=== PATIENT | female | born 1980 | race Caucasian/White ===

== ENCOUNTER 2017-05-09 17:08 | Emergency (ER) | payer BC | END 2017-05-09 18:04 | disposition left against medical advice (07) | LOC: UCCORT 17:08 | DX: R10.84 Generalized abdominal pain (principal); R07.81 Pleurodynia; Z53.21 Procedure and treatment not carried out due to patient leaving prior to being seen by health care provider ==

== ENCOUNTER 2017-07-02 09:57 | Emergency (ER) | payer BC ==
--- NOTE | 2017-07-02 10:24 | UC ---
Abdominal Pain Female HPI - HPI Summary HPI Summary: 36 yo female with the acute onset of LLQ abd pain this AM pain is severe no back pain nausea no vomiting hx bariatric surgery hx endometriosis - History of Current Complaint Chief Complaint: UCAbdominalPain Stated Complaint: ABD PAIN Time Seen by Provider: 07/02/17 10:18 Hx Obtained From: Patient Hx Last Menstrual Period: 06/07/15 Onset/Duration: Sudden Onset, Lasting Hours Severity Initially: Moderate Severity Currently: Severe Pain Intensity: 8 Pain Scale Used: 0-10 Numeric Location: Discrete At: LLQ Character: Colicy, Cramping, Sharp Aggravating Factor(s): Nothing Alleviating Factor(s): Nothing Associated Signs and Symptoms: Positive: Diaphoresis, Nausea Allergies/Adverse Reactions: Allergies Allergy/AdvReac Type Severity Reaction Status Date / Time NO MRI BREAST Allergy Severe NEURO Uncoded 07/02/17 10:08 STIMULATION BLEACH Allergy Intermediate Hives Uncoded 07/02/17 10:08 Home Medications: Home Medications Tyrosine 75 gm PO 07/02/17 [History] PMH/Surg Hx/FS Hx/Imm Hx Previously Healthy: Yes Neurological History: Other Other Neurological History: endometriosis - Surgical History Surgical History: Yes Surgery Procedure, Year, and Place: LASIK EYE SURGERY 2005; LABIA SURGERY 2005, [id number] 06/06/[facility], ovarian cyst removed - Family History Known Family History: Positive: Hypertension - Social History Alcohol Use: None Substance Use Type: None Smoking Status (MU): Former Smoker - Immunization History Most Recent Influenza Vaccination: none Review of Systems Constitutional: Negative Skin: Negative Eyes: Negative ENT: Negative Respiratory: Negative Cardiovascular: Negative Gastrointestinal: Abdominal Pain, Nausea Genitourinary: Negative Motor: Negative Neurovascular: Negative Musculoskeletal: Negative Neurological: Negative Psychological: Negative Is Patient Immunocompromised?: No All Other Systems Reviewed And Are Negative: Yes Physical Exam Triage Information Reviewed: Yes Appearance: Well-Nourished, Pain Distress Vital Signs: Initial Vital Signs Temp 97.8 F 07/02/17 10:02 Pulse 78 07/02/17 10:02 Resp 22 07/02/17 10:02 BP 133/78 07/02/17 10:02 Pulse Ox 100 07/02/17 10:02 Vital Signs Reviewed: Yes Eyes: Positive: Conjunctiva Clear ENT: Positive: Hearing grossly normal. Negative: Nasal congestion, Nasal drainage, Trismus, Muffled voice, Hoarse voice Neck: Positive: Supple Respiratory: Positive: Lungs clear, Normal breath sounds, No respiratory distress, No accessory muscle use Cardiovascular: Positive: RRR, No Murmur Abdomen Description: Positive: Soft, Other: - tender LLQ. Negative: Nontender, CVA Tenderness (R), CVA Tenderness (L) Bowel Sounds: Positive: Present Musculoskeletal: Positive: ROM Intact, No Edema Neurological: Positive: Alert Psychological Exam: Normal Skin Exam: Normal Diagnostics - Laboratory Diagnostic Studies Completed/Ordered: uDip (+) leuk, uHCG (-) Re-Evaluation - Re-Evaluation First Eval Re-Evaluation Time: 10:55 Change: Worse - pain worse Abd Pain Female Course/Dx - Course Course Of Treatment: discussed with Jeimy Stockton NP. to [facility] via EMS - Differential Dx/Diagnosis Provider Diagnoses: left LQ abd/pelvic pain of uncertain cause Discharge - Sign-Out/Discharge Documenting (check all that apply): Discharge - Discharge Plan Condition: Stable Disposition: [facility] Referrals: Galilea Menezes MD [Primary Care Provider] - - Billing Disposition and Condition Condition: STABLE Disposition: [facility]
[2017-07-02] MEDS ORDERED: Ketorolac INJ* 30 MG/ML 1 ML VIAL IM ONE (10:34)
[2017-07-02] MEDS ORDERED: Ketorolac INJ* 30 MG/ML 1 ML VIAL ONE (10:35)
--- OUTSIDE RECORDS SUMMARY | 2017-07-02 10:43 | XMS REPORT ---
:1980 External Reference #:[id number] Author Organization [facility] Address [address] [address] Phone [phone] Care Team Providers Name Role Phone Galilea Menezes MD Primary Care Physician Unavailable Payers Type Date Identification Numbers Payment Provider Subscriber Commercial Policy Number: [id number] [facility] Commercial Alexis Baumann PayID: [id number] [facility] [address] [place] [address] Workers Compensation Onset: 2000 Policy Number: Special Funds Kaya Baumann [id number] Group Number: [id number] [facility] PayID: [id number] [place] [address] Problems Date Description Provider Status Onset: 07/02/2009 Family history of malignant neoplasm of Galilea Menezes MD Active breast Onset: 07/02/2009 Hypothyroidism Galilea Menezes MD Active Onset: 06/26/2009 Genital herpes simplex Galilea Menezes MD Active Onset: 05/21/2015 Impaired glucose tolerance test Galilea Menezes MD Active Onset: 05/21/2015 Pure hyperglyceridemia Galilea Menezes MD Active Onset: 05/21/2015 Vitamin D deficiency Galilea Menezes MD Active Onset: 05/24/2017 Iron deficiency anemia Glailea Menezes MD Active Onset: 05/24/2017 Cobalamin deficiency Galilea Menezes MD Active Onset: 07/10/2016 History of gastrointestinal tract bypass Galilea Menezes MD Active Onset: 05/08/2016 Anxiety state Galilea Menezes MD Active Family History Date Family Member(s) Problem(s) Comments Father Diabetes, Adult Mother Diabetes, Adult Paternal Grandfather due to () Alcoholism Paternal Grandmother due to Stroke () Maternal Grandfather due to Cancer, () Brain Maternal Grandmother due to Cancer, () - OF Breast BONE METS Onset: (age 45 Maternal Aunts Cancer, Breast Years) Social History Type Date Description Comments Marital Status Lives With Spouse Smoke-Free Home is smoke-free Pets 1 cat 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 ETOH Use Rarely consumes alcohol Smoking Patient has never smoked General Hx Text Allergies, Adverse Reactions, Alerts Date Description Reaction Status Severity Comments 05/10/2014 NKDA active Medications Medication Date Status Form Strength Qnty SIG Indications Ordering Provider Alprazolam 05/24 Active Tablets 0.25mg 14tab 1 po daily F41.1 s as needed MD Galilea panic attack Tirosint 05/24 Active Capsules 75mcg 30cap 1 po daily E03.9 s MD Galilea Lysine 01/15 Active Tablets 500mg 2 by mouth every day MD Galilea otc Probiotic 01/15 Active Tablets [address] every day MD Galilea otc Biotin 07/10 Active Capsules 5000mcg 30cap 1 by mouth s every day MD Galilea Buspirone HCL 05/08 Active Tablets 5mg 60tab 1 -3 qd prn s Anxiety MD Galilea Calcium 01/07 Active Tablets 315-250mg 4 Tabs qd [place], Citrate + D3 /2015 -Unit DO Nhan Maximum Vitamin E 01/07 Active Capsules 1000Unit 1 by mouth every day DO Nhan Alive Once 01/07 Active Tablets 2 Tabs qd [place], Daily Women DO Nhan Ultra Potency Chaste Tree 01/07 Active 1 qd Bay DO Nhan Vitamin B12 12/14 Active Tablets 1000mcg OTC 1 by mouth every day MD Galilea Vitamin D3 11/12 Active Tablets , MD Galilea Butternut-3 Fish 11/12 Active Capsules 1000mg [address] Galilea MD Concentrate Magnesium Active Capsules 400mg 1 by mouth / every day Tramadol HCL Active Tablets 50mg one by Sos [place] /0000 mouth four Orthopedic times a day Specialists as needed pain Tumeric Active 400mg 1 tab by Unknown / mouth three times a day Ferretts Active Tablets 325(106Fe take one Unknown /0000 ) mg tablet (iron pill) daily with orange juice before supper meal Tirosint 05/08 Hx Capsules 88mcg 84cap 1 by mouth E03.9 Clif s daily MD Galilea - 05/24 Tirosint 01/20 Hx Capsules 75mcg 90cap 1 by mouth E03.9 Clif s daily - MD Galilea - check tsh in 05/08 6 Skin/ Nails/ 01/07 Hx 2 qd Phu, Hair DO Nhan - 07/10 [facility] Bernabe Wort 01/07 Hx Capsules 450mg Propriatary Phu Blend OTC DO Nhan - 05/08 Famotidine 09/15 Hx Tablets 20mg 60tab 1 by mouthPO Clif s qd MD Galilea - 01/07 Flintstones 09/15 Hx Chewtabs 2 by mouth Pelon Menezes daily with a MD Galilea Complete - meal 01/07 Buspirone HCL 05/21 Hx Tablets 5mg 90tab 1 by mouth F41.9 Clif s three times MD Galilea - a day as 01/07 anxiety Metformin HCL 12/14 Hx Tablets 500mg 60tab 1 by mouth Clif s twice a day MD Galilea - 05/21 [place] Thyroid 11/12 Hx Tablets 30mg 105ta take 3 2 E03.9 Clif bs tablets by MD Galilea - mouth daily 01/20 [place] Thyroid 05/10 Hx Tablets 120mg 90tab 1 by mouth 244.9 Clif s daily MD Galilea - 11/12 [place] Thyroid 04/24 Hx Tablets 30mg 105ta Take 3 1/2 244.9 Clif bs Tablets By MD Galilea - Mouth Once 05/10 Daily. Promethazine 11/21 Hx Tablets 12.5mg 30tab 1 by mouth KIERSTEN Menezes s three times MD Galilea - a day as 05/10 nausea Zovirax 10/06 Hx Cream 5% 5gm apply bid prn for cold MD Galilea - sores 09/15 Magnesium 00 Hx Capsules 300mg 1 by mouth Unknown /0000 every day - 09/15 Immunizations CPT Code Status Date Vaccine Lot # [id number] Given 12/01/2013 Immunization Td 7 Yrs Or Older [id number] Refused 06/14/2017 Afluria Or Fluvirin Flu Vac Intramuscular Vital Signs Date Vital Result Comment 06/14/2017 Weight 182.00 lb Heart Rate 76 /min BP Systolic 102 mmHg BP Diastolic 70 mmHg Respiratory Rate 18 /min Height 69.25 inches 5'9.25"05/24/17 BMI (Body Mass Index) 26.7 kg/m2 05/24/2017 Weight 184.00 lb Heart Rate 64 /min BP Systolic 110 mmHg BP Diastolic 70 mmHg Respiratory Rate 18 /min Height 69.25 inches 5'9.25"05/24/17 BMI (Body Mass Index) 27.0 kg/m2 01/15/2017 Weight 177.00 lb Heart Rate 76 /min BP Systolic 110 mmHg BP Diastolic 70 mmHg Respiratory Rate 18 /min Height 69.25 inches 5'9.25"01/15/17 BMI (Body Mass Index) 25.9 kg/m2 07/10/2016 Weight 181.00 lb Heart Rate 72 /min BP Systolic 110 mmHg BP Diastolic 70 mmHg Respiratory Rate 18 /min Height 69.25 inches 5'9.25" BMI (Body Mass Index) 26.5 kg/m2 05/08/2016 Weight 185.00 lb Heart Rate 84 /min BP Systolic 102 mmHg BP Diastolic 62 mmHg Respiratory Rate 18 /min Height 69.25 inches 5'9.25" BMI (Body Mass Index) 27.1 kg/m2 03/11/2016 Body Temperature 97.6 F Weight 191.00 lb Heart Rate 76 /min BP Systolic 126 mmHg BP Diastolic 84 mmHg Respiratory Rate 14 /min Height 69.25 inches 5'9.25" BMI (Body Mass Index) 28.0 kg/m2 01/08/2016 Weight 189.00 lb Heart Rate 80 /min BP Systolic 120 mmHg BP Diastolic 60 mmHg Respiratory Rate 18 /min Height 69.25 inches 5'9.25" O2 % BldC Oximetry 97 % BMI (Body Mass Index) 27.7 kg/m2 09/16/2015 Weight 204.00 lb Heart Rate 80 /min BP Systolic 110 mmHg BP Diastolic 70 mmHg Respiratory Rate 18 /min Height 69.25 inches 5'9.25" BMI (Body Mass Index) 29.9 kg/m2 05/31/2015 Weight 251.00 lb Heart Rate 66 /min BP Systolic 134 mmHg BP Diastolic 90 mmHg Respiratory Rate 18 /min Height 69.25 inches 5'9.25" BMI (Body Mass Index) 36.8 kg/m2 05/21/2015 Weight 248.00 lb Heart Rate 92 /min BP Systolic 154 mmHg BP Diastolic 84 mmHg BP Systolic Recheck 130 mmHg BP Diastolic Recheck 82 mmHg Respiratory Rate 18 /min Height 69 inches 5'9" BMI (Body Mass Index) 36.6 kg/m2 03/21/2015 Weight 246.00 lb Heart Rate 76 /min BP Systolic 112 mmHg BP Diastolic 70 mmHg Respiratory Rate 18 /min Height 69 inches 5'9" BMI (Body Mass Index) 36.3 kg/m2 02/19/2015 Weight 245.00 lb Heart Rate 76 /min BP Systolic 132 mmHg BP Diastolic 90 mmHg Respiratory Rate 20 /min Height 69 inches 5'9" BMI (Body Mass Index) 36.2 kg/m2 01/15/2015 Weight 251.00 lb Heart Rate 76 /min BP Systolic 122 mmHg BP Diastolic 72 mmHg Respiratory Rate 18 /min Height 69 inches 5'9" BMI (Body Mass Index) 37.1 kg/m2 12/14/2014 Weight 250.00 lb Heart Rate 76 /min BP Systolic 110 mmHg BP Diastolic 70 mmHg Respiratory Rate 18 /min Height 69 inches 5'9" BMI (Body Mass Index) 36.9 kg/m2 11/12/2014 Weight 257.00 lb Heart Rate 84 /min BP Systolic 112 mmHg BP Diastolic 90 mmHg Respiratory Rate 18 /min Height 69 inches 5'9" BMI (Body Mass Index) 37.9 kg/m2 09/27/2014 Weight 259.00 lb Heart Rate 78 /min BP Systolic 122 mmHg BP Diastolic 80 mmHg Respiratory Rate 18 /min Height 69 inches 5'9" BMI (Body Mass Index) 38.2 kg/m2 09/11/2014 Weight 235.00 lb Heart Rate 68 /min BP Systolic 126 mmHg BP Diastolic 78 mmHg Respiratory Rate 18 /min Height 69 inches 5'9" BMI (Body Mass Index) 34.7 kg/m2 05/10/2014 Weight 250.00 lb Heart Rate 68 /min BP Systolic 112 mmHg BP Diastolic 88 mmHg Respiratory Rate 18 /min Height 69.25 inches 5'9.25" BMI (Body Mass Index) 36.6 kg/m2 03/20/2014 Height 69.25 inches 5'9.25" 11/21/2013 Weight 230.00 lb Heart Rate 80 /min BP Systolic 124 mmHg BP Diastolic 90 mmHg Respiratory Rate 18 /min Height 69.25 inches 5'9.25" 09/21/2013 Weight 246.00 lb Heart Rate 80 /min BP Systolic 132 mmHg BP Diastolic 90 mmHg Respiratory Rate 18 /min Height 69.25 inches 5'9.25" 09/06/2013 Weight 244.00 lb Heart Rate 72 /min BP Systolic 122 mmHg BP Diastolic 88 mmHg Respiratory Rate 18 /min Height 69.25 inches 5'9.25" 08/22/2013 Weight 234.00 lb Heart Rate 80 /min BP Systolic 130 mmHg BP Diastolic 90 mmHg Respiratory Rate 18 /min Height 69.25 inches 5'9.25" 06/28/2013 Weight 239.00 lb Heart Rate 88 /min BP Systolic 124 mmHg BP Diastolic 80 mmHg Respiratory Rate 18 /min Height 69.25 inches 5'9.25" 04/10/2013 Weight 238.00 lb Heart Rate 60 /min BP Systolic 130 mmHg BP Diastolic 90 mmHg Respiratory Rate 18 /min Height 69.25 inches 5'9.25" (Done On 08/30/12) 03/07/2013 Weight 231.00 lb Heart Rate 88 /min BP Systolic 140 mmHg BP Diastolic 90 mmHg Respiratory Rate 18 /min Height 69.25 inches 5'9.25" 10/05/2012 Weight 221.00 lb Heart Rate 74 /min BP Systolic 138 mmHg BP Diastolic 84 mmHg Respiratory Rate 18 /min 08/30/2012 Weight 220.00 lb Heart Rate 64 /min BP Systolic 124 mmHg BP Diastolic 84 mmHg Respiratory Rate 16 /min Height 69.25 inches 5'9.25" 02/02/2012 Weight 207.00 lb Heart Rate 72 /min BP Systolic 100 mmHg BP Diastolic 74 mmHg Respiratory Rate 18 /min Height 69.25 inches 5'9.25"08/28/2011 Body Temperature 98.1 F Weight 207.44 lb Heart Rate 82 /min BP Systolic 120 mmHg BP Diastolic 78 mmHg Respiratory Rate 17 /min Height 69.25 inches 5'9.25"/-201107/27/2011 Weight 202.00 lb Heart Rate 102 /min BP Systolic 112 mmHg BP Diastolic 74 mmHg Respiratory Rate 18 /min Height 69.25 inches 5'9.25" 07/24/2010 Weight 181.00 lb Heart Rate 70 /min BP Systolic 118 mmHg BP Diastolic 70 mmHg Respiratory Rate 16 /min Height 70 inches 5'10" 04/17/2010 Weight 204.00 lb Heart Rate 80 /min BP Systolic 124 mmHg BP Diastolic 80 mmHg Respiratory Rate 18 /min Height 69 inches 5'9" 01/14/2010 Weight 214.00 lb Heart Rate 80 /min BP Systolic 124 mmHg BP Diastolic 82 mmHg Respiratory Rate 18 /min 12/10/2009 Weight 212.00 lb Heart Rate 100 /min BP Systolic 122 mmHg BP Diastolic 807 mmHg Respiratory Rate 18 /min 11/21/2009 Weight 207.00 lb Heart Rate 88 /min BP Systolic 130 mmHg BP Diastolic 80 mmHg Respiratory Rate 18 /min 11/19/2009 Body Temperature 98.8 F Weight 207.00 lb Heart Rate 84 /min BP Systolic 120 mmHg BP Diastolic 80 mmHg Respiratory Rate 18 /min 10/03/2009 Weight 214.00 lb Heart Rate 102 /min BP Systolic 120 mmHg BP Diastolic 80 mmHg Respiratory Rate 18 /min 07/02/2009 Weight 206.00 lb Heart Rate 88 /min BP Systolic 112 mmHg BP Diastolic 80 mmHg Respiratory Rate 18 /min 06/26/2009 Weight 207.00 lb Heart Rate 60 /min BP Systolic 120 mmHg BP Diastolic 80 mmHg Respiratory Rate 16 /min Height 69.5 inches 5'9.50" Results Test Date Test Result H/L Range Note Laboratory test finding 01/13/2017 TSH 4.60 uIU/mL 0.35-4.94 1 Laboratory test finding 11/11/2016 Ferritin 9 ng/mL 8-252 2, 3 Magnesium 2.1 mg/dL 1.8-2.4 2, 4 Iron-Tibc-%Sat 11/11/2016 Serum Iron 53 g/dL 50-170 2 Total Iron Binding Capacity 403 g/dL 250-450 2 Transferrin %Saturation 13 % 12-57 2 Comprehensive Metabolic (CMP) 07/02/2016 Glucose 92 mg/dL 74-106 5 BUN 6 mg/dL Low 7-18 5 Creatinine 0.6 mg/dL 0.6-1.3 5 Glom Filtration Rate, Estimate >60 mL/min >60 5 If >60 mL/min >60 5, 6 BUN/Creat 10.0 ratio 5 Sodium 141 mmol/L 136-145 5 Potassium 4.0 mmol/L 3.5-5.1 5 Chloride 108 mmol/L High 98-107 5 Carbon Dioxide 23 mmol/L 21-32 5 Anion Gap 10 mEq/L 8-16 5 Calcium 8.6 mg/dL 8.5-10.1 5 Total Protein 7.6 g/dL 6.4-8.2 5 Albumin 3.9 g/dL 3.4-5.0 5 Globulin 3.7 g/dL 1.9-4.3 5 Alb/Glob 1.1 ratio 5 Bilirubin,Total 0.6 mg/dL 0.2-1.0 5 Sgot/Ast 19 U/L 15-37 5 SGPT/Alt 28 U/L 12-78 5 Alkaline Phosphatase 67 U/L 45-117 5 Laboratory test finding 07/02/2016 Thyroid Stim Hormone 3.69 uIU/mL 0.30- 4.20 5 Glycohemoglobin A1c 07/02/2016 Glycohemoglobin (A1c) 5.4 % 4.2-6.3 5, 7 eAG 108 mg/dL 5 Laboratory test finding 07/02/2016 Vitamin D,25-Hydroxy 41.4 ng/mL 30.0- 100.0 5, 8 Lipid 07/02/2016 Cholesterol 150 mg/dL <200 5, 9 Triglycerides 103 mg/dL <150 5, 10 HDL Cholesterol 63 mg/dL >40 5, 11 LDL-Cholesterol 66 mg/dL < 100 5, 12 Laboratory test 05/05/2016 Thyroid Stim 8.44 uIU/mL High 0.30-4.20 13 finding Hormone Laboratory test 03/18/2016 Urine HCG NEGATIVE Negative 14, 15 finding (Qualitative) Stool Panel 03/12/2016 Enteric Pathogens SEE NOTE 16, 17 By PCR Giard/Cryptosp Exam SEE NOTE 16, 18 Lactoferrin,Fecal POSITIVE (Neg) 16, 19 Crypto/Giard Antigen 03/12/2016 Crypto/Giard Antigen SEE NOTE 16, 20 C Diff Toxin B/PCR-RL 03/12/2016 Specimen Description STOOL 16 C Diff Toxin B NEGATIVE (Neg) 16 027 Nap1 B1 NEGATIVE (Neg) 16 Comment NOTE: IF REFLEX <SEE NOTE> 16, 21 Laboratory test finding 03/11/2016 Thyroid Stim Hormone 7.01 uIU/mL High 0.30-4.20 22 Hepatic (Liver) Panel 03/11/2016 Sgot/Ast 29 U/L 15-37 22 SGPT/Alt 39 U/L 12-78 22 Total Protein 7.7 g/dL 6.4-8.2 22 Albumin 3.9 g/dL 3.4-5.0 22 Globulin 3.8 g/dL 1.9-4.3 22 Alb/Glob 1.0 ratio 22 Bilirubin,Total 0.5 mg/dL 0.2-1.0 22 Bilirubin,Direct < 0.1 mg/dL 0.0-0.2 22 Bilirubin,Indirect 0.4 mg/dL 0.0-0.9 22 Alkaline Phosphatase 70 U/L 45-117 22 CBC With Auto Diff 12/20/2015 White Blood Count 5.3 K/uL 3.1-10.7 23 Red Blood Count 4.88 M/uL 3.90-5.40 23 Hemoglobin 14.1 gm/dL 11.6-15.8 23 Hematocrit 41.4 % 36.0-46.1 23 Mean Cell Volume 84.8 fl 80.9-99.0 23 Mean Corpuscular HGB 28.9 pg 25.9-32.7 23 Mean Corpuscular HGB Conc 34.1 g/dL 30.8-34.3 23 Platelet Count 354 K/uL 155-360 23 Red Cell Distri Width SD 41.7 fl 3-47 23 Red Cell Distri Width %CV 13.7 % 11.7-14.4 23 Mean Platelet Volume 10.1 fL 8.9-12.4 23 Neut% 33.5 % Low 40.4-72.8 23 Lymph % 54.9 % High 17.0-46.1 23 [place] % 9.7 % 4.3-13.2 23 Eo% 1.3 % 0.0-6.6 23 Bas% 0.6 % 0.0-1.1 23 Neut# 1.76 K/uL Low 1.8-7.0 23 Lymph # 2.88 K/uL 1.8-7.0 23 [place] # 0.51 K/uL 0.3-0.9 23 Eos # 0.07 K/uL 0.0-0.5 23 Baso # 0.03 K/uL 0.0-0.1 23 @[facility] Pat Id: [id number] 23 @[facility] Req #: [id number] 23 TSH 12/20/2015 Thyroid Stim Hormone 1.06 uIU/mL 0.30-4.20 @[facility] Pat Id: [id number] @[facility] Req #: [id number] Is Patient Fasting? Fasting Serum Iron 12/20/2015 Serum Iron 80 g/dL 50-170 @[facility] Pat Id: [id number] @[facility] Req #: [id number] Is Patient Fasting? Fasting Inhibin A, Ultrasensitive 12/20/2015 Inhibin A, Ultrasensitive 46.9 pg/mL . 23, 24 @[facility] Pat Id: [id number] 23 @[facility] Req #: [id number] 23 HCG,Beta 12/20/2015 HCG,Beta <1 mIU/mL . 23, 25 Subunit,QN,(Serial) Subunit,QN,(Serial) @[facility] Pat Id: [id number] 23 @[facility] Req #: [id number] 23 Cancer Antigen (CA) 125 12/20/2015 Cancer Antigen (CA) 125 35.3 U/mL 0.0- 38.1 23, 26 @[facility] Pat Id: [id number] 23 @[facility] Req #: [id number] 23 Vitamin B12 12/20/2015 Vitamin B12 780 pg/mL 193-986 @[facility] Pat Id: [id number] @[facility] Req #: [id number] Is Patient Fasting? Fasting Ferritin 12/20/2015 Ferritin 14 ng/mL 8-252 @[facility] Pat Id: [id number] @[facility] Req #: [id number] Is Patient Fasting? Fasting Comprehensive Metabolic Panel 12/20/2015 Glucose 93 mg/dL 74-106 BUN 5 mg/dL Low 7-18 Creatinine 0.6 mg/dL 0.6-1.3 Glom Filtration Rate, Estimate >60 mL/min >60 If >60 mL/min >60 27 BUN/Creat 8.3 ratio Sodium 142 mmol/L 136-145 Potassium 3.7 mmol/L 3.5-5.1 Chloride 109 mmol/L High 98-107 Carbon Dioxide 25 mmol/L 21-32 Anion Gap 8 mEq/L 8-16 Calcium 8.7 mg/dL 8.5-10.1 Total Protein 6.7 g/dL 6.4-8.2 Albumin 3.3 g/dL Low 3.4-5.0 Globulin 3.4 g/dL 1.9-4.3 Alb/Glob 1.0 ratio Bilirubin,Total 0.4 mg/dL 0.2-1.0 Sgot/Ast 27 U/L 15-37 SGPT/Alt 40 U/L 12-78 Alkaline Phosphatase 65 U/L 45-117 @[facility] Pat Id: [id number] @[facility] Req #: [id number] Is Patient Fasting? Fasting Phosphorous 12/20/2015 Phosphorous 3.2 mg/dL 2.5-4.0 @[facility] Pat Id: [id number] @[facility] Req #: [id number] Is Patient Fasting? Fasting Magnesium 12/20/2015 Magnesium 1.8 mg/dL 1.8-2.4 @[facility] Pat Id: [id number] @[facility] Req #: [id number] Is Patient Fasting? Fasting Afp Tumor Marker,Serum 12/20/2015 Afp Tumor Marker,Serum 5.4 ng/mL 0.0- 8.3 23, 28 @[facility] Pat Id: [id number] 23 @[facility] Req #: [id number] 23 Folate,RBC 12/20/2015 Folate,Hemolysate 483.7 ng/mL Not Estab. 23 Hematocrit 41.2 % 34.0-46.6 23 Folate,RBC 1174 ng/mL >498 23 @[facility] Pat Id: [id number] 23 @[facility] Req #: [id number] 23 Glycohemoglobin A1c 12/20/2015 Glycohemoglobin (A1c) 5.3 % 4.2-6.3 23, 29 eAG 105 mg/dL 23 @[facility] Pat Id: [id number] 23 @[facility] Req #: [id number] 23 LDH 12/20/2015 LDH 125 U/L 84-246 @[facility] Pat Id: [id number] @[facility] Req #: [id number] Is Patient Fasting? Fasting Laboratory test finding 03/12/2015 QuantiFERON Criteria See Note Negative 30 QuantiFERON TB Ag Value 0.03 IU/mL . QuantiFERON Nil Value 0.04 IU/mL . QuantiFERON Mitogen Value 9.48 IU/mL . QFT TB Ag minus Nil Value < 0.01 IU/mL . QuantiFERON TB Gold Interpret See Note 31 Glycohemoglobin A1c 03/12/2015 Glycohemoglobin (A1c) 5.4 % 4.2-6.3 32 eAG 108 mg/dL Laboratory test finding 02/08/2015 Thyroid Stim Hormone 0.83 uIU/mL 0.36- 3.74 Iron-Tibc-%Sat 02/08/2015 Serum Iron 86 g/dL 50-170 Total Iron Binding Capacity 355 g/dL 250-450 Transferrin %Saturation 24 % 12-57 Laboratory test finding 02/08/2015 Vitamin B12 879 pg/mL 193-986 33 Comprehensive Metabolic Panel 02/08/2015 Glucose 97 mg/dL 74-106 BUN 12 mg/dL 7-18 Creatinine 0.7 mg/dL 0.6-1.3 Glom Filtration Rate, Estimate >60 mL/min >60 If >60 mL/min >60 34 BUN/Creat 17.1 ratio Sodium 139 mmol/L 136-145 Potassium 4.2 mmol/L 3.5-5.1 Chloride 111 mmol/L High 98-107 Carbon Dioxide 21 mmol/L 21-32 Anion Gap 7 mEq/L Low 8-16 Calcium 8.6 mg/dL 8.5-10.1 Total Protein 7.3 g/dL 6.4-8.2 Albumin 3.8 g/dL 3.4-5.0 Globulin 3.5 g/dL 1.9-4.3 Alb/Glob 1.1 ratio Bilirubin,Total 0.4 mg/dL 0.2-1.0 Sgot/Ast 40 U/L High 15-37 SGPT/Alt 61 U/L 12-78 Alkaline Phosphatase 76 U/L 45-117 Laboratory test finding 02/08/2015 Magnesium 2.0 mg/dL 1.8-2.4 Insulin 15.9 uIU/mL 2.6-24.9 35 Testosterone,Serum 20 ng/dL 8-48 Vitamin D,25-Hydroxy 38.1 ng/mL 30.0-100.0 36 CBC W/Automated Diff 02/08/2015 White Blood Count 4.4 K/uL 3.1-10.7 Red Blood Count 5.11 M/uL 3.90-5.40 Hemoglobin 14.7 gm/dL 11.6-15.8 Hematocrit 41.8 % 36.0-46.1 Mean Cell Volume 81.8 fl 80.9-99.0 Mean Corpuscular HGB 28.8 pg 25.9-32.7 Mean Corpuscular HGB Conc 35.2 g/dL High 30.8-34.3 Platelet Count 391 K/uL High 155-360 Red Cell Distri Width SD 41.3 fl 3-47 Red Cell Distri Width %CV 14.3 % 11.7-14.4 Mean Platelet Volume 10.3 fL 8.9-12.4 Neut% 38.9 % Low 40.4-72.8 Lymph % 49.4 % High 17.0-46.1 [place] % 9.8 % 4.3-13.2 Eo% 1.4 % 0.0-6.6 Bas% 0.5 % 0.0-1.1 Neut# 1.70 K/uL 1.0-7.0 Lymph # 2.16 K/uL 1.8-7.0 [place] # 0.43 K/uL 0.3-0.9 Eos # 0.06 K/uL 0.0-0.5 Baso # 0.02 K/uL 0.0-0.1 Liver Function Tests 10/15/2014 Total Protein 7.2 g/dL 6.4-8.2 Albumin 3.8 g/dL 3.4-5.0 Globulin 3.4 g/dL 1.9-4.3 Alb/Glob 1.1 ratio Bilirubin,Total 0.3 mg/dL 0.2-1.0 Bilirubin,Direct < 0.1 mg/dL 0.0-0.2 Bilirubin,Indirect 0.2 mg/dL 0.0-0.9 Sgot/Ast 26 U/L 15-37 SGPT/Alt 51 U/L 12-78 Alkaline Phosphatase 91 U/L 45-117 Basic Metabolic Panel 10/15/2014 Glucose 108 mg/dL High 74-106 BUN 10 mg/dL 7-18 Creatinine 0.7 mg/dL 0.6-1.3 Glom Filtration Rate, Estimate >60 mL/min >60 If >60 mL/min >60 37 BUN/Creat 14.2 ratio Sodium 138 mmol/L 136-145 Potassium 3.8 mmol/L 3.5-5.1 Chloride 108 mmol/L High 98-107 Carbon Dioxide 23 mmol/L 21-32 Anion Gap 7 mEq/L Low 8-16 Calcium 9.1 mg/dL 8.5-10.1 LDL Cholesterol Profile 10/15/2014 Cholesterol 196 mg/dL < 200 38 Triglycerides 283 mg/dL < 150 39 HDL Cholesterol 42 mg/dL > 40 40 LDL-Cholesterol 97 mg/dL < 100 41 Laboratory test finding 10/15/2014 Thyroid Stim Hormone 1.13 uIU/mL 0.36- 3.74 CBC W/Automated Diff 10/15/2014 White Blood Count 4.7 K/uL 3.1-10.7 Red Blood Count 5.19 M/uL 3.90-5.40 Hemoglobin 14.8 gm/dL 11.6-15.8 Hematocrit 42.6 % 36.0-46.1 Mean Cell Volume 82.1 fl 80.9-99.0 Mean Corpuscular HGB 28.5 pg 25.9-32.7 Mean Corpuscular HGB Conc 34.7 g/dL High 30.8-34.3 Platelet Count 407 K/uL High 155-360 Red Cell Distri Width SD 41.9 fl 3-47 Red Cell Distri Width %CV 14.1 % 11.7-14.4 Mean Platelet Volume 10.0 fL 8.9-12.4 Neut% 35.8 % Low 40.4-72.8 Lymph % 51.0 % High 17.0-46.1 [place] % 10.4 % 4.3-13.2 Eo% 1.7 % 0.0-6.6 Bas% 1.1 % 0.0-1.1 Neut# 1.69 K/uL 1.0-7.0 Lymph # 2.40 K/uL 1.8-7.0 [place] # 0.49 K/uL 0.3-0.9 Eos # 0.08 K/uL 0.0-0.5 Baso # 0.05 K/uL 0.0-0.1 Laboratory test 10/15/2014 Cancer Antigen 44.7 U/mL High 0.0-34.0 42 finding (CA) 125 Laboratory test 09/11/2014 HPV Laboratory Allia 43 finding <SEE NOTE> Laboratory test 09/11/2014 Pap Smear Thin SEE NOTE - nl 44 finding Prep Laboratory test 07/06/2014 Cancer Antigen 51.2 U/mL High 0.0-34.0 45 finding (CA) 125 Laboratory test 07/06/2014 Thyroid Stim 3.76 uIU/mL High 0.36-3.74 finding Hormone Laboratory test 04/20/2014 Thyroid Stim 8.13 uIU/mL High 0.36-3.74 46 finding Hormone Laboratory test 01/01/2014 QFT TB Ag minus 0.02 IU/mL . finding Nil Value QuantiFERON Criteria See Note 47 QuantiFERON Mitogen Value 4.91 IU/mL . QuantiFERON Nil Value 0.08 IU/mL . QuantiFERON TB Ag Value 0.10 IU/mL . QuantiFERON TB Gold Negative Negative 48 QuantiFERON TB Gold Interpret See Note 49 Laboratory test finding 09/06/2013 TSH 0.83 uIU/ml 0.50-6.00 Laboratory test finding 07/26/2013 Cancer Antigen (CA) 69.7 U/mL High 0.0- 34.0 50 125 Laboratory test finding 06/22/2013 Afp Tumor 4.1 ng/mL 0.0-8.3 51 Marker,Serum Cancer Antigen (CA) 125 65.5 U/mL High 0.0-34.0 52 HCG,Beta Subunit,QN,(Serial) <1 mIU/mL . 53 Room Temp [facility] Specimen See Note 54 Laboratory test finding 06/22/2013 Inhibin A, Ultrasensitive 22.1 pg/mL . 55 LDH 179 U/L 165-265 Laboratory test finding 02/04/2013 QFT TB Ag minus Nil Value 0.02 IU/mL . QuantiFERON Criteria See Note 56 QuantiFERON Incubation See Note 57 QuantiFERON Mitogen Value > 10.00 Iu/ml . QuantiFERON Nil Value 0.22 IU/mL . QuantiFERON TB Ag Value 0.24 IU/mL . QuantiFERON TB Gold Negative Negative 58 QuantiFERON TB Gold Interpret See Note 59 Quantiferon Client Incubated See Note 60 Laboratory test finding 02/04/2013 2 Hour GTT See Note mg/dL 61 Dehydroepiandrosterone Sulfate 121.9 g/dL 84.8-378.0 62 FSH 9.5 mIU/mL 63 Factor VIII Activity 72 % 50-150 64 Free T4 0.81 ng/dL 0.71-1.85 65 HCG, Quant < 1.0 mIU/mL 66 Hematocrit 40.7 % 36.0-46.1 Hemoglobin 14.6 gm/dL 11.6-15.8 Hydroxyprogesterone,17-Alpha 29 ng/dL . 67 Insulin 12.1 uIU/mL 2.6-24.9 68 Luteinizing Hormone 6.1 mIU/mL 69 Mean Cell Volume 80.8 fl Low 80.9-99.0 Mean Corpuscular HGB 29.0 pg 25.9-32.7 Mean Corpuscular HGB Conc 35.9 g/dL High 30.8-34.3 Mean Platelet Volume 9.2 fL 8.9-12.4 Platelet Count 350 K/uL 155-360 Prolactin 10.1 ng/mL 3.24-29.12 70 Red Blood Count 5.04 M/uL 3.90-5.40 Red Cell Distri Width %CV 14.0 % 11.7-14.4 Thyroid Stim Hormone 3.22 uIU/mL 0.49-4.67 71 Triiodothyronine,Total 159 ng/dL 71-180 72 White Blood Count 3.5 K/uL 3.1-10.7 LDL Cholesterol Profile 02/04/2013 Cholesterol 179 mg/dL 120-200 HDL Cholesterol 41 mg/dL 29-83 LDL-Cholesterol 96 mg/dL 62-185 Triglycerides 211 mg/dL 16-231 Testosterone,Free/Weakly 02/04/2013 Testosterone,%Free/Weakly 9.5 % 3.0- 18.0 Bound BND Testosterone,Free+Weakly Bound 1.8 ng/dL 0.0-9.5 73 Testosterone,Serum 19 ng/dL 8-48 Laboratory test finding 09/07/2012 Anion Gap 13 mEq/L 8-16 BUN 7 mg/dL 5-23 BUN/Creat 10.0 ratio Calcium 9.2 mg/dL 8.5-10.1 Carbon Dioxide 23 mEq/L 18-29 Chloride 110 mmol/L High 98-107 Creatinine 0.7 mg/dL 0.5-1.4 Free T4 0.86 ng/dL 0.71-1.85 Glom Filtration Rate, Estimate >60 mL/min >60 Glucose 96 mg/dL 76-115 If >60 mL/min >60 74 Potassium 4.0 mmol/L 3.5-5.1 Sodium 142 mmol/L 136-145 Thyroid Stim Hormone 1.52 uIU/mL 0.49-4.67 LDL Cholesterol Profile 09/07/2012 Cholesterol 158 mg/dL 120-200 HDL Cholesterol 50 mg/dL 29-83 LDL-Cholesterol 69 mg/dL 62-185 Triglycerides 197 mg/dL 16-231 Laboratory test 08/31/2012 Triiodothyronine,Total See Note 75 finding Laboratory test 04/29/2012 TSH 1.02 uIU/ml 0.50-6.00 finding Laboratory test 03/15/2012 TSH 8.930 uIU/ml High 0.50-6.00 76 finding Laboratory test 12/29/2011 TSH 5.670 uIU/ml 0.50-6.00 77 finding Laboratory test 09/02/2011 TSH 1.846 uIU/ml 0.50-6.00 78 finding Laboratory test 08/28/2011 Gina Species See Note 79 finding Gardnerella Vaginalis See Note 80 Trichomonas Vaginalis See Note 81 Laboratory test finding 07/27/2011 Anion Gap 14 mmol/L 10-20 BUN 11 mg/dL 7-18 BUN/CR Ratio 19.7 Ratio 12-20 Calcium 9.9 mg/dL 8.7-10.5 Carbon Dioxide 25 mmol/L 22-30 Chloride 105 mmol/L 98-107 Creatinine, Serum 0.6 mg/dL Low 0.7-1.2 Glucose 88 mg/dL 65-105 Potassium 4.3 mmol/L 3.6-5.0 Sodium 139 mmol/L 137-145 TSH 0.035 uIU/ml Low 0.50-6.00 Laboratory test 07/27/2011 Cytology Pap See Note 82 finding Laboratory test 03/09/2011 TSH 1.007 uIU/ml 0.50-6.00 78 finding Laboratory test 01/26/2011 TSH 6.090 uIU/ml High 0.50-6.00 78 finding Laboratory test 12/16/2010 TSH 7.994 uIU/ml High 0.50-6.00 78 finding Laboratory test 11/10/2010 TSH 6.845 uIU/ml High 0.50-6.00 78 finding Laboratory test 09/22/2010 TSH 5.349 uIU/ml 0.50-6.00 78 finding Laboratory test 08/07/2010 TSH 15.015 uIU/ml High 0.50-6.00 83 finding Laboratory test 07/24/2010 Cytology Pap See Note 84 finding Laboratory test 02/25/2010 TSH 5.278 uIU/ml 0.50-6.00 85 finding Laboratory test 12/20/2009 Mumps Antibodies, 2.70 index High 0.00-0.90 86 finding Igg Rubella Igg Antibody Positive (Positive) 87 Rubeola Antibodies, Igg 3.06 index High 0.00-0.90 88 Varicella-Zoster Virus Igg AB 1.79 index High 0.00-0.90 89 Laboratory test finding 11/20/2009 Anion Gap 16 mEq/L 8-16 BUN 9 mg/dL 5-23 BUN/Creat 12.8 Bas% 0.1 % 0.0-1.1 Baso # 0.0 K/uL 0.0-0.1 CK 17 U/L Low 26-190 90 Calcium 8.8 mg/dL 8.5-10.1 Carbon Dioxide 22 mEq/L 21-32 Chloride 107 mEq/L 98-107 Creatinine 0.7 mg/dL 0.5-1.4 D-Dimer, Quantitative 1.72 ug/mL High 91 Eo% 0.2 % 0.0-6.6 Eos # 0.0 K/uL 0.0-0.5 Glom Filtration Rate, Estimate >60 mL/min >60 Glucose 109 mg/dL 76-115 HCG Serum, Qualitative Negative 92 Hematocrit 43.2 % 36.0-46.1 Hemoglobin 15.1 gm/dL 11.6-15.8 If >60 mL/min >60 93 Lymph # 2.5 K/uL 0.8-3.4 Lymph % 21.9 % 17.0-46.1 Mean Cell Volume 82.6 fl 80.9-99.0 Mean Corpuscular HGB 28.9 pg 25.9-32.7 Mean Corpuscular HGB Conc 35.0 g/dL High 30.8-34.3 Mean Platelet Volume 9.7 fL 8.9-12.4 [place] # 0.9 K/uL 0.3-0.9 [place] % 7.8 % 4.3-13.2 Neut# 7.9 K/uL High 1.0-7.0 Neut% 70.0 % 40.4-72.8 Platelet Count 387 K/uL High 155-360 Potassium 3.4 mEq/L Low 3.5-5.1 Red Blood Count 5.23 M/uL 3.90-5.40 Red Cell Distri Width %CV 13.5 % 11.7-14.4 Red Cell Distri Width SD 40 fl 3-47 Sodium 142 mEq/L 136-145 Troponin-I 0.1 ng/mL 0.0-0.6 94 White Blood Count 11.2 K/uL High 3.1-10.7 Laboratory test finding 09/27/2009 TSH 4.664 uIU/ml 0.50-6.00 85 Laboratory test finding 08/13/2009 TSH 11.343 uIU/ml High 0.50-6.00 85 Laboratory test finding 07/03/2009 Cytology Pap See Note 95 Laboratory test finding 06/27/2009 A/G Ratio 1.3 1.0-2.2 96 Absolute Basophils 0.063 K/ul 0.0-0.3 96 Absolute Eosinophils 0.091 K/ul 0.0-0.5 96 Absolute Lymphocytes 2.43 K/ul 0.8-4.8 96 Absolute Monocytes 0.411 K/ul 0.1-1.0 96 Absolute Neutrophils 2.00 K/ul Low 2.05-7.63 96 Albumin 4.1 g/dL 3.5-5.0 96 Alkaline Phosphatase 77 U/L 30-126 96 Alt 17 U/L 9-52 96 Ast 20 U/L 14-36 96 BUN 11 mg/dL 7-18 96 BUN/CR Ratio 16.9 Ratio 12-20 96 Basophil 1.3 % 0-2 96 Calcium 9.8 mg/dL 8.7-10.5 96 Carbon Dioxide 27 mmol/L 22-30 96 Chloride 104 mmol/L 98-107 96 Cortisol,Random 20.8 NotEstab.ug/ 96, 97 Creatinine, Serum 0.6 mg/dL Low 0.7-1.2 96 Eosinophil 1.8 % 0-4 96 Globulin 3.1 g/dL 2.7-4.3 96 Glucose 86 mg/dL 65-105 96 Hematocrit 42.5 % 37.0-51.0 96 Hemoglobin 14.5 GM/dl 12.0-16.0 96 Lymphocytes 48.6 % High 20-44 96 MCH 29.2 pg 26.0-32.0 96 MCHC 34.2 g/dL 31.0-36.0 96 MCV 85 FL 80-97 96 Monocytes 8.2 % 2-10.0 96 Neutrophils 40.1 % Low 50-70 96 Platelet Count 434 K/ul 140-440 96 Potassium 4.2 mmol/L 3.6-5.0 96 RBC 4.99 M/ul 4.2-6.3 96 RDW 12.7 % 11.5-14.5 96 Sodium 141 mmol/L 137-145 96 TSH 12.341 uIU/ml High 0.50-6.00 96 Total Bilirubin 0.4 mg/dL 0.2-1.3 96 Total Protein 7.2 g/dL 6.3-8.2 96 WBC 5.0 K/ul 4.1-10.9 96 1 6 mos 2 K91.2 E61.1 E83.42 3 Specimen slightly Hemolyzed, interpret with caution 4 Specimen slightly Hemolyzed, interpret with caution 5 E03.9, E78.1, R73.02 6 Note: Persistent reduction for 3 months or more in an eGFR <60 mL/min/1.73 m2 defines CKD. Patients with eGFR values >/=60 mL/min/1.73 m2 may also have CKD if evidence of persistent proteinuria is present. The original MDRD equation for estimated GFR is not valid for patients less than 18 years of age. Additional information may be found at www.kdoqi.org. 7 Elevated levels of HbA1c suggest the need for more aggressive treatment of glycemia. The [place] Diabetes Association recommends that a primary goal of therapy should be a HbA1c of <7% and that physicians should re-evaluate the treatment regimen in patients with HbA1c values consistently >8%. 8 Vitamin D deficiency has been defined by the [place] of [employer] and an Endocrine Society practice guideline as a level of serum 25-OH vitamin D less than 20 ng/mL (1,2). The Endocrine Society went on to further define vitamin D insufficiency as a level between 21 and 29 ng/mL (2). 1. IOM ([place] of Medicine). 2010. Dietary reference intakes for calcium and D. [place]: The National Academies Press. 2. Luther MF, Curry NC, Marjan PALOMARES, et al. Evaluation, treatment, and prevention of vitamin D deficiency: an Endocrine Society clinical practice guideline. JCEM. 2010; 96(7):1911-30. Performed at: RN - [facility] [address] [id number] Sound Engineer: Esperanza Little MD, Phone: [phone] 9 Reference Guidelines*: Desirable: ........... < 200 mg/dL Borderline High: ..... 200-239 mg/dL High: ................ >=240 mg/dL * The National Cholesterol Education Program (NCEP) 10 Reference Guidelines*: Normal: ............. < 150 mg/dL Borderline High: .... 150-199 mg/dL High: ............... 200-499 mg/dL Very High: .......... > 500 mg/dL * Source: National Cholesterol Education Program (NCEP) 11 Reference Guidelines*: Low HDL: ..... < 40 mg/dL Normal: ..... 40-60 mg/dL Desirable: ... > 60 mg/dL *The National Cholesterol Education Program(NCEP) 12 Reference Guidelines*: Optimal:........... <100 mg/dL Near Optimal....... 100-129 mg/dL Borderline High.... 130-159 mg/dL High............... 160-189 mg/dL Very High.......... >=190 mg/dL * Source: National Cholesterol Education Program (NCEP) 13 E03.9 14 CONSULT 03/16 [id number] 15 FIRST MORNING SPECIMENS GENERALLY CONTAIN THE HIGHEST CONCENTRATION OF HCG AND ARE RECOMMENDED FOR EARLY DETECTION OF . 16 supplies given to pt. AB 17 SPECIMEN DESCRIPTION STOOL SPECIAL REQUESTS NONE RESULT NEGATIVE FOR ENTERIC PATHOGENS BY PCR. NOTE: THIS MOLECULAR ASSAY DETECTS THE FOLLOWING ENTERIC PATHOGENS: CAMPYLOBACTER GROUP (COLI, JEJUNI, LOLA), SALMONELLA SPECIES, SHIGELLA SPECIES (DYSENTERIAE, BOYDII, SONNEI, FLEXNERI), VIBRIO GROUP (CHOLERAE, PARAHAEMOLYTICUS), YERSINIA ENTEROCOLITICA, SHIGA TOXIN 1, SHIGA TOXIN 2, NOROVIRUS GROUP 1 AND 2, ROTAVIRUS A REPORT STATUS FINAL 03/13/2016 Unless otherwise specified, testing performed by [facility] [address] [place] [address] 18 SPECIMEN DESCRIPTION STOOL SPECIAL REQUESTS NONE RESULT NEGATIVE FOR GIARDIA BY DFA NEGATIVE FOR CRYPTOSPORIDIUM BY DFA STOOL SPECIMEN SCREENED FOR THE PRESENCE OF GIARDIA LAMBLIA AND CRYPTOSPORIDIUM PARVUM ONLY. FOR PATIENTS FROM OR WITH A HISTORY OF TRAVEL TO A DEVELOPING COUNTRY, OR WHO HAVE PERSISTANT SYMPTOMS AND/OR ARE IMMUNOCOMPROMISED, CALL MICROBIOLOGY TO REQUEST THE REFLEX TEST OAP FOR A COMPREHENSIVE MICROSCOPIC EXAMINATION. SPECIMENS ARE SAVED IN FIXATIVE AND HELD FOR 7 DAYS FROM THE REPORT DATE TO ALLOW THESE TESTS TO BE ADDED ON. REPORT STATUS FINAL 03/13/2016 Unless otherwise specified, testing performed by [facility] [address] [place] [address] 19 PERFORMED AT [address] [place] [address] Unless otherwise specified, testing performed by [facility] [address] [place] [address] 20 SPECIMEN DESCRIPTION STOOL SPECIAL REQUESTS NONE RESULT NEGATIVE FOR GIARDIA ANTIGEN BY IMMUNOASSAY NEGATIVE FOR CRYPTOSPORIDIUM ANTIGEN BY IMMUNOAS SAY REPORT STATUS FINAL 03/13/2016 Unless otherwise specified, testing performed [place] [address] 21 NOTE: IF REFLEX CULTURE FOR KLEBSIELLA OXYTOCA IS CLINICALLY INDICATED, PLEASE CONTACT THE MICROBIOLOGY LABORATORY ([phone]) WITHIN 3 DAYS OF THIS REPORT. Unless otherwise specified, testing performed by [facility] [address] [place] [address] 22 E03.9 R74.0 23 E03.9 24 Menstrual Phase Early Follicular <34.0 Late Follicular <99.0 Periovulatory 8.0-233.0 MidLuteal <145.0 End Luteal <145.0 Postmenopausal <4.0 Results for this test are for research purposes only by the assay's yard truck driver. The performance characteristics of this product have not been established. Results should not be used as a diagnostic procedure without confirmation of the diagnosis by another medically established diagnostic product or procedure. Performed at: - [facility] [id number] Sound Engineer: Kevin Cotto MD, Phone: [phone] 25 Female (Non-) 0 - 5 (Postmenopausal) 0 - 8 Female () Weeks of Gestation 3 6 - 71 4 10 - 750 5 726 - 2799 6 643 - 64413 7 4764 -667388 8 87779 -018928 9 18788 -984560 10 33648 -286055 12 62095 -686822 14 14973 - 94039 15 03110 - 72075 16 7746 - 81681 17 4778 - 05499 18 6213 - 52564 Zoraida ECLIA methodology Performed at: - [facility] [id number] Sound Engineer: Esperanza Little MD, Phone: [phone] 26 Zoraida ECLIA methodology Values obtained with different assay methods or kits cannot be used interchangeably. Results cannot be interpreted as absolute evidence of the presence or absence of malignant disease. 27 Note: Persistent reduction for 3 months or more in an eGFR <60 mL/min/1.73 m2 defines CKD. Patients with eGFR values >/=60 mL/min/1.73 m2 may also have CKD if evidence of persistent proteinuria is present. The original MDRD equation for estimated GFR is not valid for patients less than 18 years of age. Additional information may be found at www.kdoqi.org. 28 Normal values apply only to males and to non females. These results are not interpretable for females. Zoraida ECLIA methodology. Values obtained with different assay methods or kits cannot be used interchangeably. Results cannot be interpreted as absolute evidence of the presence or absence of malignant disease. 29 Elevated levels of HbA1c suggest the need for more aggressive treatment of glycemia. The [place] Diabetes Association recommends that a primary goal of therapy should be a HbA1c of <7% and that physicians should re-evaluate the treatment regimen in patients with HbA1c values consistently >8%. 30 To be considered positive a specimen should have a TB Ag minus Nil value greater than or equal to 0.35 IU/mL and in addition the TB Ag minus Nil value must be greater than or equal to 25% of the Nil value. There may be insufficient information in these values to differentiate between some negative and some indeterminate test values. 31 The QuantiFERON TB Gold (in Tube) assay is intended for use as an aid in the diagnosis of TB infection. Negative results suggest that there is no TB infection. In patients with high suspicion of exposure, a negative test should be repeated. A positive test indicates infection with Mycobacterium tuberculosis. Among individuals without tuberculosis infection, a positive test may be due to exposure to M. kansasii, M. szulgai or M. marinum. On the Internet, go to cdc.gov/tb for further details. Performed at: RN - [facility] [address], [place], [place] [id number] Sound Engineer: Esperanza Little MD, Phone: [phone] 32 Elevated levels of HbA1c suggest the need for more aggressive treatment of glycemia. The [place] Diabetes Association recommends that a primary goal of therapy should be a HbA1c of <7% and that physicians should re-evaluate the treatment regimen in patients with HbA1c values consistently >8%. 33 QUERY: Is the Patient Fasting? Y 34 Note: Persistent reduction for 3 months or more in an eGFR <60 mL/min/1.73 m2 defines CKD. Patients with eGFR values >/=60 mL/min/1.73 m2 may also have CKD if evidence of persistent proteinuria is present. The original MDRD equation for estimated GFR is not valid for patients less than 18 years of age. Additional information may be found at www.kdoqi.org. 35 QUERY: @This code for SINGLE insulin level. Use [id number] (6 spec QUERY: @[id number] for Insulin (5 Specimens) QUERY: @Order [id number] (4 Specimens) QUERY: Is the Patient Fasting? Y 36 Vitamin D deficiency has been defined by the [place] of [employer] and an Endocrine Society practice guideline as a level of serum 25-OH vitamin D less than 20 ng/mL (1,2). The Endocrine Society went on to further define vitamin D insufficiency as a level between 21 and 29 ng/mL (2). 1. IOM ([place] of Medicine). 2010. Dietary reference intakes for calcium and D. [place]: The National Academies Press. 2. Luther BROOKS, Curry HICKS, Marjan PALOMARES, et al. Evaluation, treatment, and prevention of vitamin D deficiency: an Endocrine Society clinical practice guideline. JCEM. 2011 Oct; 96(7):1911-30. Performed at: RN - [facility] [address] [id number] Sound Engineer: Esperanza Little MD, Phone: [phone] 37 Note: Persistent reduction for 3 months or more in an eGFR <60 mL/min/1.73 m2 defines CKD. Patients with eGFR values >/=60 mL/min/1.73 m2 may also have CKD if evidence of persistent proteinuria is present. The original MDRD equation for estimated GFR is not valid for patients less than 18 years of age. Additional information may be found at www.kdoqi.org. 38 Reference Guidelines*: Desirable: ........... < 200 mg/dL Borderline High: ..... 200-239 mg/dL High: ................ >=240 mg/dL * The National Cholesterol Education Program (NCEP) 39 Reference Guidelines*: Normal: ............. < 150 mg/dL Borderline High: .... 150-199 mg/dL High: ............... 200-499 mg/dL Very High: .......... > 500 mg/dL * Source: National Cholesterol Education Program (NCEP) 40 Reference Guidelines*: Low HDL: ..... < 40 mg/dL Normal: ..... 40-60 mg/dL Desirable: ... > 60 mg/dL *The National Cholesterol Education Program(NCEP) 41 Reference Guidelines*: Optimal:........... <100 mg/dL Near Optimal....... 100-129 mg/dL Borderline High.... 130-159 mg/dL High............... 160-189 mg/dL Very High.......... >=190 mg/dL * Source: National Cholesterol Education Program (NCEP) 42 Zoraida ECLIA methodology Values obtained with different assay methods or kits cannot be used interchangeably. Results cannot be interpreted as absolute evidence of the presence or absence of malignant disease. Performed at: [facility] [address] [id number] Sound Engineer: Esperanza Little MD, Phone: [phone] [facility] [address] [id number] Amplified Molecular High Risk HPV Test Accession Number [id number] Specimen(s) Received A: High Risk HPV Thin Prep Cervical / Endocervical Pap Smear - One Vial Other Case Numbers: [id number] Diagnosis RISK GROUPS RESULTS High Risk NEGATIVE Tested for HPV Types (16, 18, 31, 33, 35, 39, 45, 51, 52, 56, 58, 59, 66, 68) Reported: 09/14/2014 15:22 Electronically Signed Out By Kylee Carmona [facility] 44 [address] [facility]. [address] [place] [address] GYNECOLOGIC CYTOLOGY REPORT Accession Number: [id number] Source of Specimen(s): A: Thin Prep Cervical / Endocervical Pap Smear - One Vial Clinical Diagnosis and History: Date of Last Menstrual Period: 09/02/14 Other Clinical Conditions: Last Pap Smear: 2011 normal HPV ASSAY REQUESTED Specimen Adequacy Satisfactory for evaluation Presence of endocervical/transformation zone component General Categorization Negative for intraepithelial lesion or malignancy Interpretation NEGATIVE FOR INTRAEPITHELIAL LESION OR MALIGNANCY Endometrial cells within cycle Recommendations HPV testing will be performed and a separate report will be issued. Reported: 09/13/2014 Electronically Signed Out By Josselin RODAS(ASCP) [facility] ian Unless otherwise specified, testing performed by [facility] [address] [address] 45 Zoraida ECLIA methodology Values obtained with different assay methods or kits cannot be used interchangeably. Results cannot be interpreted as absolute evidence of the presence or absence of malignant disease. Performed at: [facility] [address] [id number] Sound Engineer: Esperanza Little MD, Phone: [phone] 46 HAND EMBROIDERER IS ON OTHER REQ ORDER 47 To be considered positive a specimen should have a TB Ag minus Nil value greater than or equal to 0.35 IU/mL and in addition the TB Ag minus Nil value must be greater than or equal to 25% of the Nil value. There may be insufficient information in these values to differentiate between some negative and some indeterminate test values. 48 The specimen received for QuantiFERON testing was incubated by the ordering institution. Specific procedures outlined in our Directory of Services and in the package insert for the QuantiFERON Gold (In Tube) test must be followed to enable for proper stimulation of cells for the production of interferon gamma. 49 The QuantiFERON TB Gold (in Tube) assay is intended for use as an aid in the diagnosis of TB infection. Negative results suggest that there is no TB infection. In patients with high suspicion of exposure, a negative test should be repeated. A positive test indicates infection with Mycobacterium tuberculosis. Among individuals without tuberculosis infection, a positive test may be due to exposure to M. kansasii, M. szulgai or M. marinum. On the Internet, go to cdc.gov/tb for further details. Performed at: [facility] [id number] Sound Engineer: Esperanza Little MD, Phone: [phone] 50 Zoraida ECLIA methodology Values obtained with different assay methods or kits cannot be used interchangeably. Results cannot be interpreted as absolute evidence of the presence or absence of malignant disease. Performed at: [facility] [id number] Sound Engineer: Esperanza Little MD, Phone: [phone] 51 Normal values apply only to males and to non females. These results are not interpretable for females. Zoraida ECLIA methodology. Values obtained with different assay methods or kits cannot be used interchangeably. Results cannot be interpreted as absolute evidence of the presence or absence of malignant disease. 52 Zoraida ECLIA methodology Values obtained with different assay methods or kits cannot be used interchangeably. Results cannot be interpreted as absolute evidence of the presence or absence of malignant disease. 53 Female (Non-) 0 - 5 (Postmenopausal) 0 - 8 Female () Weeks of Gestation 3 6 - 71 4 10 - 750 5 071 - 7682 6 158 - 47449 7 [id number] 8 88728 -063493 9 53769 -461203 10 13524 -496977 12 39769 -247912 14 42206 - 51092 15 86515 - 62172 16 6119 - 16604 17 4722 - 40389 18 7384 - 98404 Zoraida ECLIA methodology Performed at: [address] [id number] Sound Engineer: Esperanza Little MD, Phone: [phone] 54 06/22/13 [facility] SEP REQ 55 Menstrual Phase Early Follicular <34.0 Late Follicular <99.0 Periovulatory 8.0-233.0 MidLuteal <145.0 End Luteal <145.0 Postmenopausal <4.0 Results for this test are for research purposes only by the assay's yard truck driver. The performance characteristics of this product have not been established. Results should not be used as a diagnostic procedure without confirmation of the diagnosis by another medically established diagnostic product or procedure. Performed at: [address] [id number] Sound Engineer: Kevin Cotto MD, Phone: [phone] 56 To be considered positive a specimen should have a TB Ag minus Nil value greater than or equal to 0.35 IU/mL and in addition the TB Ag minus Nil value must be greater than or equal to 25% of the Nil value. There may be insufficient information in these values to differentiate between some negative and some indeterminate test values. 57 Specimen incubated at [place], [place]. 58 Specimen incubated at [place], [place]. 59 The QuantiFERON TB Gold (in Tube) assay is intended for use as an aid in the diagnosis of TB infection. Negative results suggest that there is no TB infection. In patients with high suspicion of exposure, a negative test should be repeated. A positive test indicates infection with Mycobacterium tuberculosis. Among individuals without tuberculosis infection, a positive test may be due to exposure to M. kansasii, M. szulgai or M. marinum. On the Internet, go to cdc.gov/tb for further details. Performed at: [address] [id number] Sound Engineer: Esperanza Little MD, Phone: [phone] 60 02/04/13 LAB.MA DRAWN ON SAT, NOT INCUBATED 61 Glucose, Fast 104 mg/dL 1/2 Hr Glucose 187 (H) mg/dL 1 Hr Glucose 128 mg/ dL 2 Hr Glucose 101 ng/dL FAST URINE GLU NEGATIVE % FAST URINE KET NEGATIVE 1/2HR URINE GLU NEGATIVE % 1/2HR URINE KET NEGATIVE 1HR URINE GLU NEGATIVE % 1HR URINE KET NEGATIVE 2HR URINE GLU NEGATIVE % 2HR URINE KET NEGATIVE 62 SHARE RESULTS PER PATIENT 63 NORMALLY MENSTRUATING FEMALES: Follicular Phase:...............4-13 mIU/mL Mid-Cycle Peak:.................5-22 mIU/mL Luteal Phase:...................2 -13 mIU/mL Postmenopausal Female:........20-138 mIU/mL 64 Performed at: [address] [id number] Sound Engineer: Kevin Cotto MD, Phone: [phone] 65 SHARE RESULTS PER PATIENT 66 Approximate Gestational Age and Total BHCG Range: 0.2 - 1 Week........................5-50 mIU/mL 1 - 2 Weeks.....................50- 500 mIU/mL 2 - 3 Weeks..................100-5,000 mIU/mL 3 - 4 Weeks.................500-10,000 mIU/mL 4 - 5 Weeks...............1,000-50, 000 mIU/mL 5 - 6 Weeks.............10,000-100,000 mIU/mL 6 - 8 Weeks.............15,000-200,000 mIU/mL 2 - 3 Months............10,000-100, 000 mIU/mL 67 Adult Female Follicular 15 - 70 Luteal 35 - 290 68 SHARE RESULTS PER PATIENT QUERY: @This code for SINGLE insulin level. Use [id number] (6 spec QUERY: @[id number] for Insulin (5 Specimens) QUERY: @Order [id number] (4 Specimens) QUERY: Is the Patient Fasting? Y 69 NORMALLY MENSTRUATING FEMALES: Follicular Phase.............1-18 mIU/mL Mid -Cycle Peak.............24-105 mIU/mL Luteal Phase...............0.4-20 mIU/mL Postmenopausal .............15-62 mIU/mL 70 SHARE RESULTS PER PATIENT 71 SHARE RESULTS PER PATIENT 72 Performed at: [address] [id number] Sound Engineer: Esperanza Little MD, Phone: [phone] Performed at: [address] [id number] Sound Engineer: Kevin Cotto MD, Phone: [phone] 73 Performed at: [address] [id number] Sound Engineer: Esperanza Little MD, Phone: [phone] Performed at: [address] [id number] Sound Engineer: Kevin Cotto MD, Phone: [phone] 74 Note: Persistent reduction for 3 months or more in an eGFR <60 mL/min/ 1.73 m2 defines CKD. Patients with eGFR values >/=60 mL/min/1.73 m2 may also have CKD if evidence of persistent proteinuria is present. The original MDRD equation for estimated GFR is not valid for patients less than 18 years of age. Additional information may be found at www.kdoqi.org. 75 ST[facility]ING AT [facility] 76 6 weeks 77 6 mos 78 6 weeks 79 NEGATIVE FOR GINA SPECIES Testing Performed by: [place] [address] 80 NEGATIVE FOR GARDNERELLA VAGINALIS 81 NEGATIVE FOR TRICHOMONAS VAGINALIS 82 Cytology Laboratory [address], [address] [place] [address] CYTOLOGY REPORT Name: Kaya Baumann : 1980 (Age: 31) Sex: F Location: [facility] Med. Rec. #: [id number] Date Collected: 07/27/2011 Billing #: [id number] Date Received : 07/27/2011 Requisition # [id number] Physician(s): GALILEA MENEZES MD Source of Specimen: ENDOCERVICAL/ECTOCERVICAL THIN PREP Clinical Information: Date of Last Menstrual Period: 07/03/11 Menstrual History: Regular Dysplasia/Cancer History: Abnormal Pap smear(s) Specimen Adequacy: SATISFACTORY FOR EVALUATION. ADEQUATE ENDOCERVICAL/TRANSFORMATION ZONE. General Categorization: NEGATIVE FOR INTRAEPITHELIAL LESION OR MALIGNANCY. Descriptive Evaluation: FUNGAL ORGANISMS MORPHOLOGICALLY CONSISTENT WITH GINA SP. pedro Electronic Signature CLARK Baer (ASCP) Reported: 07/29/2011 [facility] ICD-9 Code (s) V72.31 A: 112.1 83 FASTING 4 mo 84 Cytology Laboratory [address], [address] [place] [address] CYTOLOGY REPORT Name: Kaya Baumann : 1980 (Age: 30) Sex: F Location: [facility] Soc. Sec. #: [id number] Date Collected: 07/24/2010 Billing #: [id number] Date Received: 07/24/2010 Med. Rec. #: [id number] Requisition # [id number] Physician(s): GALILEA MENEZES MD Source of Specimen: ENDOCERVICAL/ECTOCERVICAL THIN PREP Clinical Information: Date of Last Menstrual Period: 07/12/10 Menstrual History: Regular Dysplasia/Cancer History: Abnormal Pap smear(s) Specimen Adequacy: SATISFACTORY FOR EVALUATION. ADEQUATE ENDOCERVICAL/TRANSFORMATION ZONE. General Categorization: NEGATIVE FOR INTRAEPITHELIAL LESION OR MALIGNANCY. dcl Electronic Signature CLARK Calles (ASCP) Reported: 07/30/2010 Also seen by:Omaira Jaramillo, CT (ASCP) [facility] ICD-9 Code(s) V72.31 85 FASTING 6 weeks 86 Negative <0.91 Equivocal 0.91 - 1.09 Positive >1.09 Presence of antibodies to Mumps is presumptive evidence of immunity except when active infection is suspected. 87 FASTING QUERY: @EMR Pat ID: QUERY: @EMR Req #: 88 Negative <0.91 Equivocal 0.91 - 1.09 Positive >1.09 Presence of antibodies to Rubeola is presumptive evidence of immunity except when active infection is suspected. 89 Negative <0.91 Equivocal 0.91 - 1.09 Positive >1.09 Performed at: RN - [facility] [place] [id number] Sound Engineer: Greg Jefferson MD, Phone: [phone] QUERY: @Dayjet Pat ID: QUERY: @EMR Req #: 91 Note: [facility] has established a 97.89% negative predictive value for thrombotic disease when a cutoff value of 0.5 ug/mL is used. Additional performance parameters for local prevalence of 94.4% as follows: PPV: 9.92%, Sensitivity: 76.47%, Specificity: 61.12% 92 QUERY: @Dayjet Pat ID: QUERY: @EMR Req #: 93 Note: Persistent reduction for 3 months or more in an eGFR <60 mL/min/ 1.73 m2 defines CKD. Patients with eGFR values >/=60 mL/min/1.73 m2 may also have CKD if evidence of persistent proteinuria is present. The original MDRD equation for estimated GFR is not valid for patients less than 18 years of age. Additional information may be found at www.kdoqi.org. 94 0 - 0.6 NG/ML: NO EVIDENCE OF MYOCARDIAL INJURY 0.7 - 1.5 NG/ML: MILD ELEVATION, SUGGESTING POSSIBLE MYOCARDIAL INJURY > 1.5 NG/ML: CONSISTENT WITH MYOCARDIAL INJURY 95 Cytology Laboratory [address] [place] [address], [address] [place] [address] CYTOLOGY REPORT Name: Kaya Baumann : 1980 (Age: 28) Sex: F Location: [facility] Soc. Sec. #: [id number] Date Collected: 07/03/2009 Billing #: [id number] Date Received: 07/03/2009 Requisition # [id number] Physician(s): GALILEA MENEZES MD Source of Specimen: ENDOCERVICAL/ECTOCERVICAL THIN PREP Clinical Information: Date of Last Menstrual Period: 06/17/09 Menstrual History: Regular Specimen Adequacy: SATISFACTORY FOR EVALUATION. NO ENDOCERVICAL/TRANSFORMATION ZONE. General Categorization: NEGATIVE FOR INTRAEPITHELIAL LESION OR MALIGNANCY. Descriptive Evaluation: REACTIVE CELLULAR CHANGES ASSOCIATED WITH INFLAMMATION. FUNGAL ORGANISMS MORPHOLOGICALLY CONSISTENT WITH GINA SP. Electronic Signature Casey Coleman MD Reported: 07/08/2009 Also seen by: CLARK Rivas (ASCP) [facility] ICD-9 Code(s) V72.31 A: 616.9 112.1 96 FASTING 97 FASTING Procedures Date CPT Code Description Status 01/08/2016 48891 Measure Blood Oxygen Level Single Determination Completed 01/08/2016 19038 Electrocardiogram Complete Completed Encounters Type Date Location Provider CPT E/M Dx Office Visit 05/24/2017 9:45a [facility] [place] [address] E03.9 F41.1 D51.9 D50.9 Office Visit 01/15/2017 11:00a [facility] [place] [address] Z00.00 Z80.3 E03.9 A60.9 R73.02 E78.1 E55.9 Z98.0 F41.1 Office Visit 07/10/2016 10:45a [facility] [place] [address] E03.9 A60.9 R73.02 E78.1 E55.9 F41.1 Z98.84 Office Visit 05/08/2016 11:15a [facility] [place] [address] E03.9 A60.9 R73.02 E78.1 E55.9 F41.9 Office Visit 03/11/2016 11:30a [facility] [place] [address] R19.7 Office Visit 01/08/2016 10:15a [facility] [place] [address] R00.2 E03.9 Office Visit 09/16/2015 10:30a [facility] [place] [place] [address] Z01.411 E03.9 E55.9 R73.02 E78.1 Z68.29 R74.0 F41.9 Office Visit 05/31/2015 1:45p [facility] [place] [address] Z01.818 Z68.36 J06.9 R10.819 E03.9 A60.9 E55.9 R73.02 F41.9 Office Visit 05/21/2015 2:00p [facility] [place] [address] Z68.36 J06.9 R10.819 E03.9 A60.9 R73.02 E78.1 E55.9 F41.9 Office Visit 03/21/2015 2:30p [facility] [place] [place] [address] Z68.36 Office Visit 02/19/2015 2:30p [facility] [place] [place] [address] Z68.36 E03.9 A60.9 R73.02 Office Visit 01/15/2015 2:30p [facility] [place] [place] [address] Z68.37 Z11.1 Office Visit 12/14/2014 11:00a [facility] [place] [place] [address] 278.00 579.0 Office Visit 11/12/2014 3:15p [facility] [place] [address] 244.9 V85.38 Office Visit 09/27/2014 4:00p [facility] [place] [place] [address] V85.38 278.00 Office Visit 09/11/2014 10:30a [facility] [place] [address] V72.31 244.9 054.10 272.1 V85.34 Office Visit 05/10/2014 3:00p [facility] [place] [address]E 244.9 054.10 268.9 783.1 Plan of Care Future Appointment(s):07/16/2017 10:00 am - Galilea Menezes MD at [facility]06/14/2017 - Galilea Menezes MDF41.1 Generalized anxiety disorderComments:doing ok on current medication - has not needed alprazolam. please call for worsening symptoms .Follow up:follow-up as scheduled
[2017-07-02] MEDS ORDERED: NS 0.9% 1000 ML* 1,000 ML BOLUS ONE (10:55)
[2017-07-02] MEDS ORDERED: Morphine INJ* 2 MG/ML 1 ML CARPUJECT IV ONE (10:56)
[2017-07-02 11:13] VITALS: BP 121/72
== END 2017-07-02 11:15 | disposition short-term general hospital (02) ==
LOC: UCCORT 09:57
DX: R10.32 Left lower quadrant pain (principal); R10.2 Pelvic and perineal pain
CPT/HCPCS: 81003; 84702; 87086; 96372; 96374; 99213; G0463; J1885; J2270

== ENCOUNTER 2022-03-11 23:30 | Observation (INO) ==
[2022-03-12] MEDS ORDERED: Acetaminophen IV 1 GM/100ML 1,000 MG/100 ML BAG IV ONE (01:00)
[2022-03-12 01:24] LABS: ABS Basophils 0.1 10^3/ul (0-0.2); ABS Neutrophils 7.3 10^3/ul (1.5-7.7); Eosinophil % 0.3 %; Hematocrit 45 % (35-47); Hemoglobin 15.3 g/dL (12.0-16.0); Lymphocyte % 19.7 %; Mean Corpuscular HGB Conc 34 g/dL (31-36); Mean Corpuscular Hemoglobin 30 pg (27-31); Mean Corpuscular Volume 87 fL (80-97); Mean Platelet Volume 7.1 fL (7.4-10.4); Nucleated Red Blood Cells % 0.1; Platelet Count 373 10^3/uL (150-450); Red Blood Count 5.13 10^6 /uL (3.70-4.87); Red Cell Distribution Width 13 % (10-15); White Blood Count 10.3 10^3/uL (3.5-10.8)
[2022-03-12 02:05] LABS: Albumin 4.2 g/dL (3.2-5.2); Albumin/Globulin Ratio 1.8 (1-3); Calcium 9.3 mg/dL (8.6-10.3); Globulin 2.3 g/dL (2-4); Potassium 3.8 mmol/L (3.5-5.0); Total Bilirubin 1.1 mg/dL (0.2-1.0); Total Protein 6.5 g/dL (6.4-8.9); eGFR CKD-EPI 114.4 (>60)
[2022-03-12] MEDS ORDERED: Iohexol 350 (CONTRAST) 500 ML MDV IV ONE (02:58)
[2022-03-12] MEDS ORDERED: Lactated Ringers 1000 ml BAG 1,000 ML IV SCH ×2 (05:00→06:20)
[2022-03-12] MEDS ORDERED: Ondansetron 4 mg VIAL 2 MG/ML 2 ml VIAL IV PRN (05:42)
[2022-03-12] MEDS ORDERED: Morphine 2 MG/ML SYRINGE IV PRN ×2 (05:48→14:03)
[2022-03-12] MEDS ORDERED: Acetaminophen IV 1 GM/100ML 1,000 MG/100 ML BAG IV PRN (05:48)
[2022-03-12] MEDS ORDERED: Enoxaparin 40 MG/0.4 ML SYR SUBCUT SCH (06:00)
[2022-03-12 06:47] LABS: ABS Eosinophils 0.1 10^3/ul (0-0.6); ABS Lymphocytes 2.6 10^3/ul (1.0-4.8); ABS Monocytes 0.5 10^3/ul (0-0.8); ABS Neutrophils 3.4 10^3/ul (1.5-7.7); Eosinophil % 1.4 %; Hematocrit 42 % (35-47); Hemoglobin 14.4 g/dL (12.0-16.0); Lymphocyte % 38.7 %; Mean Corpuscular HGB Conc 34 g/dL (31-36); Mean Corpuscular Hemoglobin 30 pg (27-31); Mean Corpuscular Volume 87 fL (80-97); Mean Platelet Volume 7.1 fL (7.4-10.4); Platelet Count 352 10^3/uL (150-450); Red Blood Count 4.89 10^6 /uL (3.70-4.87); Red Cell Distribution Width 13 % (10-15); White Blood Count 6.6 10^3/uL (3.5-10.8)
[2022-03-12 07:33] LABS: ALT 72 U/L (7-52); AST 75 U/L (13-39); Albumin 3.9 g/dL (3.2-5.2); Alkaline Phosphatase 63 U/L (35-149); Anion Gap 10 mmol/L (2-11); Blood Urea Nitrogen 10 mg/dL (6-24); C Reactive Protein < 1.00 mg/L (<8.01); CO2 Carbon Dioxide 23 mmol/L (22-32); Calcium 9.2 mg/dL (8.6-10.3); Chloride 107 mmol/L (101-111); Glucose 96 mg/dL (70-100); Potassium 4.3 mmol/L (3.5-5.0); Sodium 140 mmol/L (135-145); Total Protein 5.9 g/dL (6.4-8.9); eGFR CKD-EPI 115.3 (>60)
[2022-03-12 07:39] LABS: TSH Ultra Thyroid Stim Horm 6.67 mcIU/mL (0.34-5.60)
[2022-03-12] MEDS ORDERED: NORETHINDRONE E ESTRADIOL IRON PO SCH (09:00)
[2022-03-12 09:13] LABS: Free T4 0.44 ng/dL (0.61-1.12)
[2022-03-12 14:20] VITALS: BP 130/79
[2022-03-12 14:29] LABS: Cholesterol 115 mg/dL; HDL Cholesterol 57.5 mg/dL; LDL Cholesterol 46 mg/dL; Triglycerides 59 mg/dL
== END 2022-03-12 16:33 | disposition home or self-care (01) ==
LOC: EDHOLD 23:30 → ED 23:30 → SUATTDRO 03-12 05:42 → EDHOLD 03-12 14:19
PROVIDERS: ADMIT Student in an Organized Health Care Education/Training Program; ATTEND Internal Medicine